=== PATIENT | female | born 1970 ===

== ENCOUNTER 2016-12-03 10:33 | Outpatient (CLI) | payer OTHER | END 2016-12-03 23:00 | LOC: LAB SRH 10:33 | DX: I48.91 Unspecified atrial fibrillation (principal); N18.3 Chronic kidney disease, stage 3 (moderate); I10 Essential (primary) hypertension; E11.22 Type 2 diabetes mellitus with diabetic chronic kidney disease; R06.81 Apnea, not elsewhere classified; M10.9 Gout, unspecified | CPT/HCPCS: 90074; 90100; 91286; 92690; 94060; 95059 ==